=== PATIENT | male | born 1965 | race Hispanic/Latino ===

== ENCOUNTER 2020-07-15 20:44 | Observation (INO) | payer BC, OTHER ==
[2020-07-15 21:33] LABS: #Eosinphils 0.1 thou/uL (0.0-0.7); #Lymphocytes 2.7 thou/uL (1.20-3.40); #Monocytes 0.7 thou/uL (0.11-0.59); #Neutrophils 6.3 thou/uL (1.40-6.50); %Basophils 0.3 % (0.0-1.0); %Eosinophils 1.1 % (0.0-10.0); %Lymphocytes 27.4 % (21.0-51.0); %Monocytes 7.4 % (0.0-10.0); %Neutrophils 63.8 % (42.0-75.0); Hemoglobin 14.9 g/dL (14.0-18.0); Mean Corpuscular HGB CONC 32.9 g/dL (32.0-36.0); Mean Corpuscular Hemoglobin 29.3 pg (27.0-31.0); Mean Platelet Volume 8.5 fL (7.4-10.4); Platelet Count 229 thou/uL (130-400); RBC Distribution Width 11.9 % (11.5-14.5); Red Blood Cell (RBC) Count 5.07 mill/uL (4.70-6.10); White Blood Cell (WBC) Count 9.9 thou/uL (4.8-10.8)
--- NOTE | 2020-07-15 21:43 | RAD ---
RADIOGRAPH CHEST 1 VIEW: DATE: 07/15/2020 HISTORY: 55-year-old male with chest pain FINDINGS: The visualized lung sainz are clear. The cardiomediastinal silhouette and hilar shadows are normal. The lateral costophrenic angles are sharp. The osseous structures appear normal. There is no pneumothorax. IMPRESSION: Negative.
[2020-07-15 21:56] LABS: ALT (SGPT) 21 U/L (8-55); AST (SGOT) 16 U/L (5-34); Albumin 4.2 g/dL (3.5-5.0); Alkaline Phosphatase 71 U/L (40-110); Anion Gap 11 mmol/L (10-20); BUN (Urea Nitrogen) 13 mg/dL (8.4-25.7); Bilirubin, Total 0.3 mg/dL (0.2-1.2); CK (CPK) 85 U/L (30-200); Calc. Creatinine Clearance 0 mL/min (70-130); Calcium 8.6 mg/dL (7.8-10.44); Carbon Dioxide 25 mmol/L (22-29); Chloride 105 mmol/L (98-107); Estimated GFR-MDRD 89; Globulin 2.8 g/dL (2.4-3.5); Glucose 95 mg/dL (70-105); Lipase 25 U/L (8-78); Potassium 3.9 mmol/L (3.5-5.1); Sodium 137 mmol/L (136-145)
[2020-07-15] MEDS ORDERED: Aspirin Chewable 81 MG TAB ONE (22:23)
[2020-07-16 01:21] LABS: Troponin I Less than 0.010 ng/mL (< 0.028)
[2020-07-16 02:05] VITALS: BMI 33.0
[2020-07-16] MEDS ORDERED: Ondansetron ODT 4 MG TAB SL PRN (02:15)
[2020-07-16] MEDS ORDERED: Ondansetron PF 4 MG/2 ML Vial IVP PRN (02:15)
[2020-07-16] MEDS ORDERED: Acetaminophen 325 MG TAB PO PRN (03:46)
[2020-07-16] MEDS ORDERED: Acetaminophen 650 MG Suppository PR PRN (03:46)
[2020-07-16] MEDS ORDERED: Lidocaine 2% Viscous Solution 10 ML, Aluminum & Magnesium Hydroxide 30 ML SSW SCH (04:00)
--- NOTE | 2020-07-16 04:17 | PDOC.HHP ---
Hospitalist HPI - History of Present Illness Chest pain History of Present Illness: Patient presents with complaints of "discomfort with heartburn" in the lower sternal region which has been intermittent since Thursday. It first started while he was at work. 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 The discomfort developed and it has not fully eased since then. He states initially it was a 4/10 in severity, nonradiating and without any associated shortness of breath. Denies any cough or hemoptysis. No fevers, chills or sweats. He continued with symptoms which is what prompted due come in and be evaluated. Denies any trauma or injuries. Reports having tingling sensation in his right hand. Denies any RUE pain or injury. He thought it was due to repetitive motion s at work with activity such as using a weed whacker. At present his sternal discomfort is minimal. All other review of systems apart from those mentioned above are negative. ED COURSE: EKG showed NSR with HR of 85. No ST changes or T wave abnormalities. CXR unremarkable. Labs showed a normal FBC. Negative troponin and BNP. D-dimer negative as well. LFTs unremarkable. Given 1L NS and aspirin 324 mg PO x 1. PAST MEDICAL HISTORY: 1. Hyperlipidemia. 2. Hypertension. PAST SURGICAL HISTORY: None. SOCIAL HISTORY: He lives with his . Fully independent. Reports drinking heavily and smoking in the past but quit in 2008. No drug use. FAMILY HISTORY: States his father had heart disease. ALLERGIES: Penicillin. CURRENT MEDICATIONS: 1. Lisinopril 10 mg PO daily. - Exam General Appearance: NAD, awake alert General - other findings: BP: 154/82, Pulse: 70, Resp: 16, Temp: 98.6 (Oral), Pain: 0, O2 sat: 99 RA Eye: PERRL, anicteric sclera, scleral icterus ENT: normocephalic atraumatic, no oropharyngeal lesions Neck: supple, no lymphadenopathy Heart: RRR, no murmur, no gallops, normal peripheral pulses Respiratory: CTAB, no wheezes, no rales, no ronchi, normal chest expansion, no tachypnea Gastrointestinal: soft, non-tender, non-distended, normal bowel sounds, no palpable masses, no guarding, no rigidity Extremities: no edema Skin: normal turgor, no lesions, no rashes Neurological: cranial nerve grossly intact, normal sensation to touch, no weakness, no focal deficits Musculoskeletal: normal tone, normal strength, no muscle wasting Psychiatric: normal affect, normal behavior, A&O x 3 Hospitalist Results - Labs Result Diagrams: 07/15/20 21:14 07/15/20 21:14 Lab results: WBC 9.9 thou/uL (4.8-10.8) 07/15/20 21:14 Hgb 14.9 g/dL (14.0-18.0) 07/15/20 21:14 Hct 45.1 % (42.0-52.0) 07/15/20 21:14 MCV 89.0 fL (78.0-98.0) 07/15/20 21:14 Plt Count 229 thou/uL (130-400) 07/15/20 21:14 Neutrophils % 63.8 % (42.0-75.0) 07/15/20 21:14 Sodium 137 mmol/L (136-145) 07/15/20 21:14 Potassium 3.9 mmol/L (3.5-5.1) 07/15/20 21:14 Chloride 105 mmol/L (98-107) 07/15/20 21:14 Carbon Dioxide 25 mmol/L (22-29) 07/15/20 21:14 BUN 13 mg/dL (8.4-25.7) 07/15/20 21:14 Creatinine 0.89 mg/dL (0.7-1.3) 07/15/20 21:14 Glucose 95 mg/dL (70-105) 07/15/20 21:14 Calcium 8.6 mg/dL (7.8-10.44) 07/15/20 21:14 Total Bilirubin 0.3 mg/dL (0.2-1.2) 07/15/20 21:14 AST 16 U/L (5-34) 07/15/20 21:14 ALT 21 U/L (8-55) 07/15/20 21:14 Alkaline Phosphatase 71 U/L (40-110) 07/15/20 21:14 Creatine Kinase 85 U/L (30-200) 07/15/20 21:14 Troponin I Less than 0.010 ng/mL (< 0.028) 07/16/20 00:48 B-Natriuretic Peptide Less than 10.0 pg/mL (0-100) 07/15/20 21:14 Serum Total Protein 7.0 g/dL (6.0-8.3) 07/15/20 21:14 Albumin 4.2 g/dL (3.5-5.0) 07/15/20 21:14 Lipase 25 U/L (8-78) 07/15/20 21:14 Hospitalist H&P A/P - Problem (1) Chest discomfort Code(s): R07.89 - OTHER CHEST PAIN Status: Acute (2) Indigestion Code(s): K30 - FUNCTIONAL DYSPEPSIA Status: Acute (3) Hypertension Code(s): I10 - ESSENTIAL (PRIMARY) HYPERTENSION Status: Chronic (4) Hyperlipidemia Code(s): E78.5 - HYPERLIPIDEMIA, UNSPECIFIED Status: Chronic - Plan Plan: Continue cardiac monitoring. Continue to trend troponins. Will give GI Cocktail x 1, as patient describes feeling indigestion. Continue Pepcid 20 mg PO BID. D-dimer negative. Stress test ordered. Will keep NPO. Continue aspirin. Check lipid panel and TSH with morning labs. Monitor BP. Reconcile home medications as appropriate once verified. DVT Prophylaxis: Patient is ambulatory. CODE STATUS: FULL. Surrogate decision maker is his Nurys Hoffmann.
[2020-07-16 04:55] LABS: #Eosinphils 0.1 thou/uL (0.0-0.7); #Lymphocytes 2.4 thou/uL (1.20-3.40); #Monocytes 0.5 thou/uL (0.11-0.59); #Neutrophils 4.8 thou/uL (1.40-6.50); %Basophils 0.2 % (0.0-1.0); %Eosinophils 1.7 % (0.0-10.0); %Lymphocytes 30.2 % (21.0-51.0); %Monocytes 6.8 % (0.0-10.0); %Neutrophils 61.2 % (42.0-75.0); Hemoglobin 15.6 g/dL (14.0-18.0); Mean Corpuscular Hemoglobin 29.6 pg (27.0-31.0); Mean Corpuscular Volume 89.7 fL (78.0-98.0); Mean Platelet Volume 8.5 fL (7.4-10.4); Platelet Count 199 thou/uL (130-400); RBC Distribution Width 11.9 % (11.5-14.5); Red Blood Cell (RBC) Count 5.28 mill/uL (4.70-6.10); White Blood Cell (WBC) Count 7.8 thou/uL (4.8-10.8)
[2020-07-16 05:20] LABS: Anion Gap 12 mmol/L (10-20); BUN (Urea Nitrogen) 11 mg/dL (8.4-25.7); Calc. Creatinine Clearance 152 mL/min (70-130); Calcium 8.7 mg/dL (7.8-10.44); Carbon Dioxide 24 mmol/L (22-29); Chloride 106 mmol/L (98-107); Estimated GFR-MDRD Greater than 90; Glucose 99 mg/dL (70-105); Potassium 3.8 mmol/L (3.5-5.1); Sodium 138 mmol/L (136-145)
[2020-07-16 05:25] LABS: Troponin I Less than 0.010 ng/mL (< 0.028)
[2020-07-16] MEDS ORDERED: Aspirin 81 mg Enteric Coated Tablet PO SCH (09:00)
[2020-07-16] MEDS ORDERED: Famotidine 20 MG TAB PO SCH (09:00)
--- NOTE | 2020-07-16 11:48 | NM ---
Radionucleotide stress and rest myocardial perfusion scan with CT attenuation correction and SPECT im aging Left ventricular wall motion evaluation and ejection fraction HISTORY: Chest pain. FINDINGS: Adenosine protocol. Heterogeneous uptake of radiotracer throughout the left ventricular scott cardium. No focal perfusion defect or reversibility. QGS analysis of gated SPECT images shows no focal wall motion abnormalities. Ejection fraction calcul ated at 67%. IMPRESSION : No evidence of ischemia. Normal LVEF.
[2020-07-16] MEDS ORDERED: ADENOSINE 60 MG/20 ML VIAL ONE (11:57)
[2020-07-16 12:00] LABS: SARS-CoV-2 MS2 Positive; SARS-CoV-2 N Gene Negative; SARS-CoV-2 S Gene Negative; SARS-CoV-2 by NAA Not Detected (NotDetected); SARS-CoV-2 orf1ab Negative
[2020-07-16 12:27] VITALS: BP 127/60; TEMP 98.4
--- NOTE | 2020-07-16 16:02 | DIS ---
DATE OF ADMISSION: 07/16/2020 DATE OF DISCHARGE: 07/16/2020 DISCHARGE DISPOSITION: To home. PRIMARY DISCHARGE DIAGNOSIS: Chest pain, which is noncardiac. SECONDARY DISCHARGE DIAGNOSES: 1. Hypertension. 2. Dyslipidemia. PROCEDURES DONE DURING HOSPITALIZATION: Chest x-ray done showed no cardiopulmonary abnormality. Nuclear stress test done showed no evidence of ischemia. Ejection fraction was 67%. No focal wall motion abnormalities were seen. H and H of 15 and 47, platelet count 199. BUN 11, creatinine 0.7. Troponin x3 negative. BNP less than 10. COVID-19 PCR was not detected on 07/16/2020. DISCHARGE MEDICATIONS: The patient is to continue lisinopril 10 mg p.o. daily. ALLERGIES: ALLERGIC TO PENICILLIN. DISCHARGE PLAN: The patient to follow up with his primary care physician, Dr. Overton in 1 week. BRIEF COURSE DURING HOSPITALIZATION: The patient initially got admitted on the with complaints of chest pain, which was more of a discomfort and heartburn in the lower sternal area. This was ongoing since Thursday. In view of this history, the patient was placed under observation on telemetry. He has had 3 sets of troponin done, which are negative. COVID-19 PCR was negative. He has had nuclear stress test done, which showed no reversible ischemia. He is hemodynamically stable and will be shortly discharged home. The patient has been advised to follow up with Dr. Overton, his primary care physician in 1 week. Please note, I have seen and examined the patient on the day of discharge. Job ID: [id number]
== END 2020-07-16 16:18 | disposition home or self-care (01) ==
LOC: ERS 20:44 → 2SW 07-16 01:36
PROVIDERS: ADMIT Family Medicine; ATTEND Family Medicine
DX: R07.89 Other chest pain (principal); K30 Functional dyspepsia; I10 Essential (primary) hypertension; E78.5 Hyperlipidemia, unspecified; Z79.899 Other long term (current) drug therapy; Z88.0 Allergy status to penicillin; Z87.891 Personal history of nicotine dependence; Z20.828 Contact with and (suspected) exposure to other viral communicable diseases
CPT/HCPCS: 36415; 71045; 78452; 80048; 80053; 82550; 83690; 83735; 83880; 84443; 84484; 85025; 85379; 87635; 93005; 93017; A9500; G0378; J0153; U0003